=== PATIENT | female | born 1940 | race Caucasian/White ===

== ENCOUNTER 2018-02-04 22:41 | Emergency (ER) | payer MEDICARE, BC ==
[~2018-02-04] VITALS: Ht 152.4 cm; Wt 63.6 kg
[2018-02-04] MEDS ORDERED: HYDROmorphone 2 MG/ML, 1ML ONE (23:51)
[2018-02-05] VITALS: BP 138/63
[2018-02-05] MEDS ORDERED: HYDROmorphone 2 MG/ML, 1ML IM ONE
== END 2018-02-05 00:56 | disposition home or self-care (01) ==
LOC: ED 23:00
DX: S42.201A Unspecified fracture of upper end of right humerus, initial encounter for closed fracture (principal); W18.30XA Fall on same level, unspecified, initial encounter; Y93.89 Activity, other specified; Y92.59 Other trade areas as the place of occurrence of the external cause; Y99.8 Other external cause status
CPT/HCPCS: 71045; 73030; 73060; 73564; 96372; 99284; J1170